=== PATIENT | female | born 1970 | race Caucasian/White ===

== ENCOUNTER 2023-08-17 10:02 | Outpatient (CLI) | payer OTHER, SELFPAY ==
--- NOTE | ~2023-08-17 | US_ITS ---
Limited Abdominal Sonogram: Real-time sonographic imaging of the right upper quadrant was performed. Clinical History: Abnormal right blood cells Findings: The liver appears normal with no evidence of mass lesion or bile duct dilatation. Main por lana vein demonstrates normal direction of flow. The gallbladder is absent, compatible prior cholecyst ectomy. The common bile duct measures 8 mm. The visualized pancreas, aorta, and IVC are unremarkable . Right kidney measures 9.1 cm in length, without hydronephrosis. Impression: No significant abnormality seen. Reviewed, dictated and finalized at location M. Impression: No significant abnormality seen.
== END 2023-08-17 10:03 ==
PROVIDERS: PCP Hospitalist
DX: R19.5 Other fecal abnormalities (principal); R10.9 Unspecified abdominal pain; K86.0 Alcohol-induced chronic pancreatitis
CPT/HCPCS: 76705